=== PATIENT | female | born 1995 | race Hispanic/Latino ===

== ENCOUNTER 2018-12-30 05:38 | Day surgery (SDC) | payer OTHER ==
[~2018-12-30] VITALS: Ht 162.6 cm; Wt 68.0 kg
[2018-12-30] MEDS ORDERED: LR 1,000 ML IV ONE (06:00)
[2018-12-30 06:14] LABS: HEMATOCRIT 43.2 % (36.0-47.0); HEMOGLOBIN 14.2 g/dl (12.0-15.5); MEAN CORPUSCULAR HEMOGLOBIN 30.6 pg (27.0-33.0); MEAN CORPUSCULAR HGB CONC 32.9 g/dl (32.0-36.5); MEAN CORPUSCULAR VOLUME 93.1 fl (80.0-96.0); PLATELET COUNT, AUTOMATED 279 10^3/uL (150-450); RED BLOOD COUNT 4.64 10^6/uL (4.00-5.40); WHITE BLOOD COUNT 9.5 10^3/uL (4.0-10.0)
[2018-12-30 06:32] LABS: BLOOD UREA NITROGEN 15 MG/DL (7-18); CALCIUM LEVEL 9.1 MG/DL (8.5-10.1); CARBON DIOXIDE LEVEL 27 MEQ/L (21-32); CHLORIDE LEVEL 110 MEQ/L (98-107); GLOMERULAR FILTRATION RATE > 60.0 (>60); GLUCOSE, FASTING 87 MG/DL (70-100); HCG, SERUM QUANTITATIVE < 1.0 MIU/ML; POTASSIUM SERUM 4.4 MEQ/L (3.5-5.1); SODIUM LEVEL 142 MEQ/L (136-145)
[2018-12-30] MEDS ORDERED: MIDAZOLAM INJ 2 MG/2 ML VIAL (J2250) As Ordered ONE (07:10)
[2018-12-30] MEDS ORDERED: fentaNYL 100 MCG/2 ML INJECTION (J3010) As Ordered ONE ×2 (07:10→07:53)
[2018-12-30] MEDS ORDERED: PROPOFOL 200 MG/20 ML VIAL As Ordered ONE (07:10)
[2018-12-30] MEDS ORDERED: LIDOCAINE 2% INJ 100 MG/5 ML SDV (FOR ANES.) As Ordered ONE (07:10)
[2018-12-30] MEDS ORDERED: ROCURONIUM BROMIDE 50 MG/5 ML VIAL As Ordered ONE (07:10)
[2018-12-30] MEDS ORDERED: BUPIVACAINE HCL 0.5% 10 ML VIAL As Ordered ONE (07:11)
[2018-12-30] MEDS ORDERED: ACETAMINOPHEN 650 MG SUPP As Ordered ONE (07:11)
[2018-12-30] MEDS ORDERED: ACETAMINOPHEN 650 MG SUPP PR ONE (07:15)
[2018-12-30] MEDS ORDERED: dexameTHASONE 4 MG/ML 1ML VIAL (J1100) As Ordered ONE (07:42)
[2018-12-30] MEDS ORDERED: ONDANSETRON 4MG/2ML VIAL (J2405) As Ordered ONE (07:53)
[2018-12-30] MEDS ORDERED: KETOROLAC 60 MG/2 ML VIAL (J1885) As Ordered ONE (07:53)
[2018-12-30] MEDS ORDERED: METOCLOPRAMIDE INJ 10MG/2ML VIAL (J2765) As Ordered ONE (08:26)
[2018-12-30] MEDS ORDERED: GLYCOPYRROLATE INJ 0.2 MG/ML 2 ML VIAL As Ordered ONE (08:34)
[2018-12-30] MEDS ORDERED: NEOSTIGMINE 10 MG/10 ML VIAL (J2710) As Ordered ONE (08:34)
[2018-12-30] MEDS ORDERED: oxyCODONE 5MG TAB PO PRN (09:00)
[2018-12-30] MEDS ORDERED: METOCLOPRAMIDE INJ 10MG/2ML VIAL (J2765) IV PRN (09:00)
[2018-12-30] MEDS ORDERED: fentaNYL 100 MCG/2 ML INJECTION (J3010) IV PRN (09:00)
[2018-12-30] MEDS ORDERED: MEPERIDINE INJ 25 MG/ML VIAL (J2175) IV PRN (09:00)
[2018-12-30] MEDS ORDERED: LR 1,000 ML IV SCH (09:00)
[2018-12-30] MEDS ORDERED: ONDANSETRON 4MG/2ML VIAL (J2405) IV PRN (09:00)
[2018-12-30 10:50] VITALS: BP 113/61
[2018-12-30] MEDS ORDERED: KETOROLAC 30 MG/ML VIAL (J1885) IV PRN (14:30)
--- NOTE | 2019-01-08 19:35 | RO ---
DATE OF PROCEDURE: 12/30/2018 PREOPERATIVE DIAGNOSIS: Satisfied parity POSTOPERATIVE DIAGNOSIS: Satisfied parity OPERATION PROPOSED: Laparoscopic bilateral salpingectomy. OPERATION PERFORMED: Laparoscopic bilateral salpingectomy. ESTIMATED BLOOD LOSS: Less than 10 mL SURGEON: Dre Gan MD BRIDGE CONSTRUCTION INSPECTOR: Dr. Kaufman ANESTHESIA: DESCRIPTION OF PROCEDURE: After adequate time-out, prepped and draped in the lithotomy position, Johnson catheter in the bladder draining clear urine. Acetaminophen suppository 1300 mg per rectum and sequentials in place. No antibiotics required. A small subumbilical incision was made. Direct entry into the abdomen - no evidence of perforation, hemorrhage or bleeding with a 3-5 mm port. CO2 was applied, and we placed 3.5 liters of CO2 at a flow rate of 14 to a pressure of 15. Examination revealed no evidence of perforation, hemorrhage or bleeding. Right upper quadrant was normal, right round ligament was normal, left round ligament was normal. Anterior aspect of the uterus was normal. Posterior cul-de-sac, patient had stage I endometriosis in the cul-de-sac. There were two or three spots in various stages. There was a noted ovulation of a corpus luteum on the left ovary. On the right ovary, there were two spots, chocolatey looking of endometriosis. The patient is not complaining of any pain. A 3 mm port was placed on the left side, a 3 mm port was placed on the right side. Uterine elevator was placed in endocervical canal. Using the LigaSure, grasping the right tube, the right tube was cauterized right to the cornual end and then the tube was removed through the 3 mm port. On the left side, the tube was visualized to the fimbriated end. Again, using the LigaSure, the tube was removed off the mesosalpinx to the cornua and then that tube was removed out through the 3 mm port. Both tubes were sent to pathology under separate cover. Reevaluation, no evidence of active bleeding. The uterus was placed in anatomical position. The two 3 mm ports were removed under direct vision. The main port was removed under direct vision after deflating to 0 pressure. Subcuticular stitches were placed in all three ports. Marcaine 0.25%, 2 mL in each port was placed. Steri-Strips were applied. The uterine elevator was removed, the Johnson catheter was removed, and the patient was sent to recovery in good condition.
== END 2018-12-30 12:25 | disposition home or self-care (01) ==
LOC: M SDC 05:38
PROVIDERS: ATTEND Obstetrics & Gynecology
DX: Z30.2 Encounter for sterilization (principal)
CPT/HCPCS: 36415; 58661; 80048; 84702; 85027; 88302; J1100; J1885; J2250; J2405; J2710; J2765; J3010

== ENCOUNTER 2019-01-03 22:04 | Emergency (ER) | payer OTHER ==
[~2019-01-03] VITALS: Ht 162.6 cm; Wt 68.2 kg
[2019-01-03] MEDS ORDERED: ACET1TAB55 PO (22:16)
[2019-01-03] MEDS ORDERED: MM S100C PO (22:16)
[2019-01-03] MEDS ORDERED: IBUP80TA PO (22:16)
[2019-01-03] MEDS ORDERED: OXYC1TAB23 PO (22:16)
[2019-01-03 22:58] LABS: BASO % 0.3 % (0.0-1.0); EOS % 0.1 % (0.0-3.0); HEMATOCRIT 40.9 % (36.0-47.0); HEMOGLOBIN 13.3 g/dl (12.0-15.5); LYMPH # 1.5 10^3/uL (1.5-5.0); LYMPH % 11.1 % (24.0-44.0); MEAN CORPUSCULAR HGB CONC 32.5 g/dl (32.0-36.5); MEAN CORPUSCULAR VOLUME 92.1 fl (80.0-96.0); MONO # 0.6 10^3/uL (0.0-0.8); MONO % 4.3 % (0.0-5.0); NEUTROPHILS # 11.7 10^3/uL (1.5-8.5); NEUTROPHILS % 83.9 % (36.0-66.0); PLATELET COUNT, AUTOMATED 261 10^3/uL (150-450); RED BLOOD COUNT 4.44 10^6/uL (4.00-5.40); WHITE BLOOD COUNT 13.9 10^3/uL (4.0-10.0)
[2019-01-03 23:16] LABS: BLOOD UREA NITROGEN 16 MG/DL (7-18); CALCIUM LEVEL 9.2 MG/DL (8.5-10.1); CARBON DIOXIDE LEVEL 27 MEQ/L (21-32); CHLORIDE LEVEL 106 MEQ/L (98-107); CREATININE FOR GFR 0.89 MG/DL (0.55-1.30); GLOMERULAR FILTRATION RATE > 60.0 (>60); GLUCOSE, FASTING 91 MG/DL (70-100); POTASSIUM SERUM 4.1 MEQ/L (3.5-5.1); SODIUM LEVEL 139 MEQ/L (136-145)
[2019-01-03 23:24] VITALS: BP 119/71
--- NOTE | 2019-01-03 23:29 | REPVR ---
PROCEDURE INFORMATION: Exam: US Pelvis Complete, Transabdominal and US Pelvis, Transvaginal Exam date and time: 01/03/2019 11:03 PM Clinical history: 23 years old, female; Pelvic pain; Prior surgery; Surgery date: 3-7 days post-operative; Surgery type: Patient had tubal ligation on 12/30, pain started on 01/01 and has had increasing pain since; Additional info: Pod 4 tubal lig, pelvic pain-central, left TECHNIQUE: Imaging protocol: Real-time transabdominal and transvaginal pelvic ultrasound (complete) with image documentation. Transvaginal imaging was used for better evaluation of the endometrium and adnexa. COMPARISON: No relevant prior studies available. FINDINGS: Uterus/cervix: The uterus is retroverted and measures 8.2 cm in its cephalocaudad dimension and 3.9 cm in its AP dimension transabdominal. The uterus is retroverted and measures 8.8 cm in its cephalocaudad dimension and 5.0 x 6.1 cm in its AP and lateral dimensions transvaginal. The endometrium measures 14 mm with trace endometrial fluid in the fundus. Right adnexa: The right ovary measures 2.4 x 2.6 x 1.6 cm and demonstrates arterial blood flow. Left adnexa: The left ovary measures 2.7 x 2.9 x 2.0 cm and demonstrates arterial blood flow. Free fluid: No significant free fluid. Bladder: Grossly within normal limits. IMPRESSION: 1. Trace fluid in the fundal endometrium which is nonspecific. The endometrium is upper normal in thickness. 2. Otherwise negative pelvic sonogram. There is bilateral ovarian blood flow. Electronically signed by: Gurdeep Hobbs On 01/03/2019 23:29:28 PM
[2019-01-03] MEDS ORDERED: DULC10SU2 PR (23:42)
[2019-01-03] MEDS ORDERED: MIRA3350 PO (23:42)
[2019-01-03] MEDS ORDERED: MAGNESIUM CITRATE 300 ML BTL PO ONE (23:45)
[2019-01-04] MEDS ORDERED: KETOROLAC 30 MG/ML VIAL (J1885) IV ONE
--- NOTE | 2019-01-04 08:30 | REP ---
KUB: Single view. History: Postoperative day #4 tubal ligation. Increased pain and constipation. Findings: Bowel gas pattern is normal. There is some stool in the ascending and descending colon but no colonic distension is seen. A rectal air is present. No small bowel dilation is observed. Psoas margins and flank stripes are intact. No mass organomegaly or pathologic calcification seen. Impression: Negative KUB. Electronically Signed by Ivan Agudelo MD 01/04/2019 08:19 A
== END 2019-01-04 00:11 | disposition home or self-care (01) ==
LOC: M ED 22:04
DX: K59.00 Constipation, unspecified (principal); Z98.890 Other specified postprocedural states
CPT/HCPCS: 36415; 74018; 76830; 76856; 80048; 85025; 86850; 86900; 86901; 93976; 96374; 99284; J1885